=== PATIENT | female | born 1975 | race Caucasian/White ===

== ENCOUNTER 2017-03-03 10:41 | Outpatient (CLI) | payer OTHER ==
[2017-03-03 18:05] LABS: BASOPHILS % (AUTO) 0.7 %; EOSINOPHILS # (AUTO) 0.1 10^3/uL (0.0-0.7); EOSINOPHILS % (AUTO) 2.2 %; HCT - HEMATOCRIT 42.3 % (37.0-47.0); HGB - HEMOGLOBIN 14.2 g/dL (12.0-16.0); LYMPHOCYTES # (AUTO) 2.3 10^3/uL (1.5-3.5); LYMPHOCYTES % (AUTO) 37.6 %; MEAN CORPUSCULAR HEMOGLOBIN 31.7 pg (27.0-31.0); MEAN CORPUSCULAR HGB CONC 33.6 g/dL (32.0-36.0); MEAN CORPUSCULAR VOLUME 94.3 fL (81.0-99.0); MEAN PLATELET VOLUME 9.5 fL (7.9-10.8); MONOCYTES # (AUTO) 0.5 10^3/uL (0.0-1.0); NEUTROPHILS % (AUTO) 50.5 %; NUCLEATED RED BLOOD CELLS AUTO 0.2 /100WBC; RED BLOOD COUNT 4.49 10^6/uL (4.20-5.40); RED CELL DISTRIBUTION WIDTH 13.2 % (12.0-15.0)
[2017-03-03 18:10] LABS: ALBUMIN/GLOBULIN RATIO 1.6 (1.0-2.2); BUN - BLOOD UREA NITROGEN 15 mg/dL (6-20); CALCIUM 9.4 mg/dL (8.5-10.3); CARBON DIOXIDE - CO2 27 mmol/L (21-32); CHLORIDE 102 mmol/L (101-111); CHOL/HDL RATIO 3.2 (<4.4); CHOLESTEROL 204 mg/dL; CREATININE 0.9 mg/dL (0.4-1.0); GFR - MDRD 69 (>89); GLUCOSE 86 mg/dL (70-100); HDL CHOLESTEROL 63 mg/dL; IRON 120 ug/dL (28-170); LDL/HDL RATIO 2.1 (<4.4); POTASSIUM 3.9 mmol/L (3.5-5.0); SODIUM 137 mmol/L (135-145); TOTAL IRON BINDING CAPACITY 307 ug/dL (250-450); TOTAL PROTEIN 7.6 g/dL (6.7-8.2); TRANSFERRIN 219 mg/dL (192-382); TRIGLYCERIDES 45 mg/dL; VLDL CHOLESTEROL 9 mg/dL
[2017-03-03 18:19] LABS: FERRITIN 62.6 ng/mL (11.0-306.8)
== END 2017-03-03 10:42 | disposition home or self-care (01) ==
LOC: LAB.F 10:41
PROVIDERS: ATTEND Naturopath
DX: Z00.01 Encounter for general adult medical examination with abnormal findings (principal); R53.83 Other fatigue
CPT/HCPCS: 36415; 80053; 80061; 82728; 83540; 84439; 84443; 84466; 84481; 85025; 86376; 86800

== ENCOUNTER 2018-05-24 11:08 | Outpatient (CLI) | payer OTHER ==
[2018-05-24 15:12] LABS: THYROID STIMULATING HORMONE 1.64 uIU/mL (0.34-5.60)
[2018-05-24 15:14] LABS: FREE T4 (FREE THYROXINE) 0.83 ng/dL (0.58-1.64)
[2018-05-26 10:11] LABS: THYROID PEROXIDASE ANTIBODIES 40 IU/mL (<9)
== END 2018-05-24 11:09 | disposition home or self-care (01) ==
LOC: LAB 11:08
PROVIDERS: ATTEND Naturopath
DX: E06.3 Autoimmune thyroiditis (principal)
CPT/HCPCS: 36415; 84439; 84443; 84481; 84482; 86141; 86376; 86800

== ENCOUNTER 2018-06-09 12:50 | Outpatient (CLI) | payer OTHER | END 2018-06-09 12:51 | disposition home or self-care (01) | LOC: RT 12:50 | PROVIDERS: ATTEND Naturopath | DX: I49.8 Other specified cardiac arrhythmias (principal); Z86.73 Personal history of transient ischemic attack (TIA), and cerebral infarction without residual deficits | CPT/HCPCS: 93005 ==

== ENCOUNTER 2019-03-29 17:13 | Outpatient (CLI) | payer OTHER | END 2019-03-29 17:14 | disposition critical access hospital (66) | LOC: EMS 17:13 | PROVIDERS: ATTEND Surgery | DX: R00.0 Tachycardia, unspecified (principal) | CPT/HCPCS: A0425; A0429 ==

== ENCOUNTER 2019-03-29 17:39 | Emergency (ER) | payer OTHER ==
--- NOTE | 2019-03-29 17:49 | ED Physician Documentation ---
PD HPI CHEST PAIN - Stated complaint Stated Complaint: RACING HEART - Chief complaint Chief Complaint: Cardiac - History obtained from History obtained from: Patient, EMS - History of Present Illness Timing - onset: Today (43-year-old woman whose had frequent palpitations in the past. Never caught on Holter monitoring or telemetry. It started earlier today and she was brought in by ambulance, they noted SVT with a heart rate of 200. Resolved spontaneously without specific treatment. She feels fine now.) Review of Systems Constitutional: denies: Fever, Fatigue Cardiac: reports: Palpitations. denies: Chest pain / pressure Respiratory: denies: Dyspnea, Cough GI: denies: Abdominal Pain PD PAST MEDICAL HISTORY - Allergies Allergies/Adverse Reactions: Allergies Allergy/AdvReac Type Severity Reaction Status Date / Time Sulfa (Sulfonamide Allergy Hives Verified 03/29/19 17:51 Antibiotics) PD ED PE NORMAL - Vitals Vital signs reviewed: Yes - General General: Alert and oriented X 3, No acute distress - HEENT HEENT: PERRL, EOMI - Neck Neck: Supple, no meningeal sign, No bony TTP - Cardiac Cardiac: RRR, No murmur - Respiratory Respiratory: No respiratory distress, Clear bilaterally - Abdomen Abdomen: Non tender - Extremities Extremities: No edema, No calf tenderness / cord - Neuro Neuro: Alert and oriented X 3, Normal speech Results - Vitals Vitals: Vital Signs - 24 hr 03/29/19 03/29/19 03/29/19 17:40 18:11 18:37 Temperature 36.5 C Heart Rate 95 86 87 Respiratory 18 17 20 Rate Blood Pressure 133/98 H 111/86 H 122/94 H O2 Saturation 99 98 99 Oxygen O2 Source Room air - EKG (time done) 1743 Rate: Rate (enter#) (91) Rhythm: NSR [place]: Normal Intervals: Normal IN QRS: Normal Ischemia: Normal ST segments Computer interpretation: Agree with computer - Labs Labs: Laboratory Tests 03/29/19 03/29/19 03/29/19 17:59 18:04 18:04 WBC 8.7 RBC 4.56 Hgb 14.1 Hct 42.5 MCV 93.2 MCH 30.9 MCHC 33.2 RDW 12.5 Plt Count 258 MPV 10.7 Neut # (Auto) 4.8 Lymph # (Auto) 2.9 [place] # (Auto) 0.8 Eos # (Auto) 0.2 Baso # (Auto) 0.0 Absolute Nucleated RBC 0.00 Nucleated RBC % 0.0 Sodium 139 Potassium 3.5 Chloride 104 Carbon Dioxide 22 Anion Gap 13.0 BUN 23 H Creatinine 0.9 Estimated GFR (MDRD) 69 L Glucose 96 Calcium 9.8 Total Bilirubin 1.0 AST 22 ALT 16 Alkaline Phosphatase 53 Total Protein 8.3 H Albumin 4.9 Globulin 3.4 Albumin/Globulin Ratio 1.4 Lipase 42 TSH Urine Color YELLOW Urine Clarity CLEAR Urine pH 6.5 Ur Specific [place] <=1.005 Urine Protein NEGATIVE Urine Glucose (UA) NEGATIVE Urine Ketones TRACE Urine Occult Blood MODERATE H Urine Nitrite NEGATIVE Urine Bilirubin NEGATIVE Urine Urobilinogen 0.2 (NORMAL) Ur Leukocyte Esterase NEGATIVE Urine RBC 0-5 Urine WBC 0-3 Ur Squamous Epith Cells RARE Squamous Urine Bacteria Rare Ur Microscopic Review INDICATED Urine Culture Comments NOT INDICATED Urine HCG, Qual NEGATIVE 03/29/19 18:04 WBC RBC Hgb Hct MCV MCH MCHC RDW Plt Count MPV Neut # (Auto) Lymph # (Auto) [place] # (Auto) Eos # (Auto) Baso # (Auto) Absolute Nucleated RBC Nucleated RBC % Sodium Potassium Chloride Carbon Dioxide Anion Gap BUN Creatinine Estimated GFR (MDRD) Glucose Calcium Total Bilirubin AST ALT Alkaline Phosphatase Total Protein Albumin Globulin Albumin/Globulin Ratio Lipase TSH 4.67 Urine Color Urine Clarity Urine pH Ur Specific [place] Urine Protein Urine Glucose (UA) Urine Ketones Urine Occult Blood Urine Nitrite Urine Bilirubin Urine Urobilinogen Ur Leukocyte Esterase Urine RBC Urine WBC Ur Squamous Epith Cells Urine Bacteria Ur Microscopic Review Urine Culture Comments Urine HCG, Qual PD MEDICAL DECISION MAKING - ED course ED course: 43-year-old woman with supraventricular tachycardia that resolved prior to arrival. Work-up here was negative. EKG here normal. No recurrences during ED stay. Departure - Departure Disposition: 01 Home, Self Care Clinical Impression: SVT (supraventricular tachycardia) Condition: Good Record reviewed to determine appropriate education?: Yes Instructions: ED Tachycardia Pat PSVT Comments: Follow-up with an training development director. Return for new worsening symptoms. Co ntinue to avoid caffeine. Drink plenty fluids.
[2019-03-29 18:10] LABS: BILIRUBIN,URINE NEGATIVE (NEGATIVE); GLUCOSE, URINE (UA) NEGATIVE (NEGATIVE); KETONES,URINE (UA) TRACE mg/dL (NEGATIVE); LEUKOCYTE ESTERASE, URINE NEGATIVE (NEGATIVE); NITRITE,URINE NEGATIVE (NEGATIVE); OCCULT BLOOD,URINE MODERATE (NEGATIVE); PH,URINE 6.5 PH (5.0-7.5); PROTEIN,URINE NEGATIVE (NEGATIVE); UROBILINOGEN,URINE 0.2 (NORMAL) E.U./dL (NORMAL)
[2019-03-29 18:12] LABS: CLARITY,URINE CLEAR (CLEAR); HCG UR QUAL NEGATIVE
[2019-03-29 18:15] LABS: BASOPHILS % (AUTO) 0.5 %; EOSINOPHILS # (AUTO) 0.2 10^3/uL (0.0-0.7); EOSINOPHILS % (AUTO) 2.5 %; HGB - HEMOGLOBIN 14.1 g/dL (12.0-16.0); LYMPHOCYTES # (AUTO) 2.9 10^3/uL (1.5-3.5); LYMPHOCYTES % (AUTO) 32.7 %; MEAN CORPUSCULAR HEMOGLOBIN 30.9 pg (27.0-31.0); MEAN CORPUSCULAR HGB CONC 33.2 g/dL (32.0-36.0); MEAN CORPUSCULAR VOLUME 93.2 fL (81.0-99.0); MEAN PLATELET VOLUME 10.7 fL (7.9-10.8); MONOCYTES # (AUTO) 0.8 10^3/uL (0.0-1.0); MONOCYTES % (AUTO) 9.3 %; NEUTROPHILS # (AUTO) 4.8 10^3/uL (1.5-6.6); NEUTROPHILS % (AUTO) 54.4 %; PLT - PLATELET COUNT 258 10^3/uL (130-450); RED BLOOD COUNT 4.56 10^6/uL (4.20-5.40); RED CELL DISTRIBUTION WIDTH 12.5 % (12.0-15.0); WHITE BLOOD COUNT 8.7 x10^3/uL (4.8-10.8)
[2019-03-29 18:21] LABS: BACTERIA,URINE Rare /HPF (None Seen); RBC,URINE 0-5 /HPF (0-5); SQUAMOUS EPITHELIAL CELL,UR RARE Squamous (<= Few)
[2019-03-29 18:30] LABS: ALBUMIN 4.9 g/dL (3.2-5.5); ALBUMIN/GLOBULIN RATIO 1.4 (1.0-2.2); CALCIUM 9.8 mg/dL (8.5-10.3); CREATININE 0.9 mg/dL (0.4-1.0); TOTAL PROTEIN 8.3 g/dL (6.7-8.2)
[2019-03-29 19:03] VITALS: BP 111/82
== END 2019-03-29 19:00 | disposition home or self-care (01) ==
LOC: EDBD → EDUNIT# → ED 17:39
DX: I47.1 Supraventricular tachycardia (principal)
CPT/HCPCS: 36415; 80053; 81001; 81003; 81025; 83690; 84443; 85025; 87086; 93005; 99283

== ENCOUNTER 2019-12-28 12:49 | Outpatient (CLI) | payer OTHER ==
--- NOTE | 2019-12-31 07:58 | Ultrasound Report ---
LIMITED ULTRASOUND OF RIGHT BREAST: 12/28/2019 CLINICAL: Follow up from addtional views. Additional evaluation requested from prior study. Comparison is made to exams dated: 12/28/2019 mammogram and 12/28/2019 mammogram - [facility]. Color flow ultrasound of the right breast was performed on the areas of interest. Trevizo scale images of the real-time examination were reviewed. There is a 0.9 cm x 0.7 cm x 0.9 cm complicated cyst in the right breast at 11 o'clock middle depth. This correlates with mammography findings. Additionally, there is a 0.9 cm x 0.5 cm x 0.7 cm simple cyst in the right breast at 11 o'clock middle depth. This correlates as an incidental finding. There is a 0.7 cm simple cyst in the right breast at 9 o'clock middle depth. This correlates with ma mmography findings. There also are 2 adjacent hypoechoic subcentimeter masses in the right breast at 9 o'clock which are incidentally noted. IMPRESSION: PROBABLY BENIGN The 0.9 cm x 0.7 cm x 0.9 cm complicated cyst in the right breast at 11 o'clock middle depth is proba corby benign. A follow-up ultrasound in 6 months is recommended. The 2 hypoechoic subcentimeter masses in the right breast inferior lateral quadrant middle depth like ly represent fibroadenomas and are probably benign. A follow-up ultrasound in 6 months is recommend ed. The 0.9 cm x 0.5 cm x 0.7 cm simple cyst in the right breast at 11 o'clock middle depth is benign. The 0.7 cm simple cyst in the right breast at 9 o'clock middle depth is benign. This exam was interpreted at Station ID: [id number]. Electronically Signed By: Mirta Pedro M.D. lk/:12/28/2019 16:07:44 Ultrasound BI-RADS: 3 Probably benign BI-RADS CATEGORY: (3) - 3 Ultrasound [id number] 6 month follow-up LATERALITY: (B)
--- NOTE | 2019-12-31 07:58 | Ultrasound Report ---
LIMITED ULTRASOUND OF LEFT BREAST: 12/28/2019 CLINICAL: Palpable left breast lump. Comparison is made to exams dated: 12/28/2019 mammogram and 12/28/2019 mammogram - [facility]. Color flow ultrasound of the left breast 3 o'clock and 9 o'clock regions was performed on the areas of interest. Trevizo scale images of the real-time examination were reviewed. There is a 0.8 cm x 0.4 cm x 1 cm complicated cyst in the left breast at 9 o'clock posterior depth wh ich corresponds with mammography findings. There is a 2.9 cm x 1.8 cm x 2.3 cm simple cyst in the left breast at 3 o'clock middle depth. This c orrelates as palpated and with mammography findings. There also is a 0.9 cm x 0.7 cm x 0.9 cm compl icated cyst in the left breast at 3 o'clock anterior depth. This correlates as an incidental finding . IMPRESSION: PROBABLY BENIGN The 0.8 cm x 0.4 cm x 1 cm complicated cyst in the left breast at 9 o'clock posterior depth is probab ly benign. A follow-up ultrasound in 6 months is recommended. The 0.9 cm x 0.7 cm x 0.9 cm complicated cyst in the left breast at 3 o'clock anterior depth is proba corby benign. A follow-up ultrasound in 6 months is recommended. The 2.9 cm x 1.8 cm x 2.3 cm simple cyst in the left breast at 3 o'clock middle depth is benign. This exam was interpreted at Station ID: [id number]. Electronically Signed By: Mirta hartman/:12/28/2019 16:11:16 Ultrasound BI-RADS: 3 Probably benign BI-RADS CATEGORY: (3) - 3 Ultrasound [id number] 6 month follow-up LATERALITY: (B)
--- NOTE | 2019-12-31 07:58 | Mammography Report ---
BILATERAL DIGITAL DIAGNOSTIC MAMMOGRAM 3D/2D: 12/28/2019 CLINICAL: Routine screening. Palpable left breast lump. No prior exams were available for comparison. The tissue of both breasts is heterogeneously dense. T his may lower the sensitivity of mammography. There is a focal asymmetry in the right breast at 9 o'clock middle depth. There also is a focal asymmetry in the right breast at 11 o'clock posterior depth. There is a 2.8 cm focal asymmetry in the left breast at 4 o'clock middle depth. This correlates as p alpated. There also is a focal asymmetry in the left breast at 11 o'clock posterior depth. No other significant masses or calcifications are seen in either breast. IMPRESSION: INCOMPLETE: NEEDS ADDITIONAL IMAGING EVALUATION The focal asymmetry in the right breast at 9 o'clock middle depth likely represents a cyst and is ind eterminate. The focal asymmetry in the right breast at 11 o'clock posterior depth likely represents a cyst and is indeterminate. The 2.8 cm focal asymmetry in the left breast at 4 o'clock middle depth likely represents a cyst and is indeterminate. The focal asymmetry in the left breast at 11 o'clock posterior depth likely represents a cyst and is indeterminate. A targeted ultrasound of the bilateral breasts is recommended and will be performed immediately follo wing this exam. This exam was interpreted at Station ID: [id number]. NOTE: For mammograms, a report in lay terms will be sent to the patient. Approximately 15% of breast malignancies will not be visualized mammographically. In the management of a palpable breast mass, a negative mammogram must not discourage biopsy of a clinically suspicious lesion. Electronically Signed By: Mirta hartman/:12/28/2019 14:28:17 ACR BI-RADS Category 0: Incomplete 3340F PARENCHYMAL PATTERN: (D) - The breast(s) demonstrate(s) heterogeneously dense fibroglandular trever dixon. BI-RADS CATEGORY: (0) - 0 Ultrasound [id number] Immediate follow-up LATERALITY: (B)
== END 2019-12-28 12:50 | disposition home or self-care (01) ==
LOC: DI 12:49
PROVIDERS: ATTEND Registered Nurse
DX: N60.01 Solitary cyst of right breast (principal); N63.10 Unspecified lump in the right breast, unspecified quadrant
CPT/HCPCS: 76642; 77066